=== PATIENT | female | born 1955 ===

== ENCOUNTER 2022-12-22 10:32 | Outpatient (CLI) | payer OTHER | END 2022-12-22 10:40 | disposition home or self-care (01) | LOC: LAB 10:32 | PROVIDERS: ATTEND Family Medicine | DX: Z20.822 Contact with and (suspected) exposure to COVID-19 (principal) ==

== ENCOUNTER 2022-12-24 05:34 | Day surgery (SDC) | payer OTHER | END 2022-12-24 11:20 | disposition home or self-care (01) | LOC: CIR.AMB 05:34 | PROVIDERS: ATTEND Surgery Surgery of the Hand | DX: M19.041 Primary osteoarthritis, right hand (principal); I10 Essential (primary) hypertension; R01.1 Cardiac murmur, unspecified; Z20.822 Contact with and (suspected) exposure to COVID-19 ==